=== PATIENT | female | born 1950 | race Two or more races ===

== ENCOUNTER 2017-08-13 11:06 | Emergency (ER) | payer OTHER ==
[~2017-08-13] VITALS: Ht 157.5 cm; Wt 59.0 kg
[~2017-08-13 11:06] MED LIST: ATARAX25 MG PO; OSEL75CA PO; ZYRTEC10 M3 PO
[2017-08-13] MEDS ORDERED: SYNTHROID75 MCG (11:38)
[2017-08-13] MEDS ORDERED: COZAAR50 MG (11:38)
[2017-08-13] MEDS ORDERED: ALPHAGAN P5 M2 (11:39)
[2017-08-13] MEDS ORDERED: CALTRATE 600+D1 EAC1 (11:39)
[2017-08-13] MEDS ORDERED: VITAMIN D31 ML (11:39)
[2017-08-13] MEDS ORDERED: ASPIR 8181 MG (11:39)
[2017-08-13] MEDS ORDERED: MUPIROCIN22 GM TOP (12:20)
[2017-08-13] MEDS ORDERED: DUI500 PO (12:20)
== END 2017-08-13 12:41 | disposition home or self-care (01) ==
LOC: ER 11:06
DX: S51.851A Open bite of right forearm, initial encounter (principal); W55.01XA Bitten by cat, initial encounter; Y93.89 Activity, other specified; Y92.89 Other specified places as the place of occurrence of the external cause; Y99.8 Other external cause status

== ENCOUNTER 2018-07-27 16:44 | Emergency (ER) | payer OTHER ==
[~2018-07-27] VITALS: Ht 160 cm; Wt 63.5 kg
[~2018-07-27 16:44] MED LIST changes: +ALPHAGAN P5 M2; +ASPIR 8181 MG; +CALTRATE 600+D1 EAC1; +COZAAR50 MG; +DUI500 PO; +MUPIROCIN22 GM TOP; +SYNTHROID75 MCG; +VITAMIN D31 ML
== END 2018-07-27 19:11 | disposition home or self-care (01) ==
LOC: ER 16:44
DX: B34.9 Viral infection, unspecified (principal); J11.1 Influenza due to unidentified influenza virus with other respiratory manifestations

== ENCOUNTER → 2020-08-03 | Outpatient (CLI) | payer OTHER | END | disposition home or self-care (01) | LOC: SONOGRAMA 09:12 | PROVIDERS: ATTEND Internal Medicine Cardiovascular Disease | DX: M12.811 Other specific arthropathies, not elsewhere classified, right shoulder (principal) ==

== ENCOUNTER 2021-07-06 09:38 | Emergency (ER) | payer OTHER ==
[~2021-07-06] VITALS: Ht 157.5 cm; Wt 64.9 kg
[2021-07-06] MEDS ORDERED: BETAMETHASONE D15 G2 TOP (13:45)
[2021-07-06] MEDS ORDERED: BENADRYL25 MG PO (13:45)
== END 2021-07-06 14:31 | disposition home or self-care (01) ==
LOC: ER 09:38
DX: L29.8 Other pruritus (principal); R21 Rash and other nonspecific skin eruption

== ENCOUNTER 2023-01-13 10:28 | Emergency (ER) | payer OTHER ==
[~2023-01-13] VITALS: Ht 162.6 cm; Wt 57.2 kg
[~2023-01-13 10:28] MED LIST changes: +BENADRYL25 MG PO; +BETAMETHASONE D15 G2 TOP
== END 2023-01-13 14:18 | disposition home or self-care (01) ==
LOC: ER 10:28
DX: S00.93XA Contusion of unspecified part of head, initial encounter (principal); S80.01XA Contusion of right knee, initial encounter; W18.30XA Fall on same level, unspecified, initial encounter; Y93.9 Activity, unspecified; Y92.012 Bathroom of single-family (private) house as the place of occurrence of the external cause; Y99.9 Unspecified external cause status

== ENCOUNTER 2024-03-31 09:01 | Outpatient (CLI) | payer OTHER | END 2024-03-31 09:02 | disposition home or self-care (01) | LOC: NUCLEAR 09:01 | PROVIDERS: ATTEND Internal Medicine Cardiovascular Disease | DX: I10 Essential (primary) hypertension (principal); G45.9 Transient cerebral ischemic attack, unspecified ==

== ENCOUNTER 2025-03-03 09:47 | Outpatient (CLI) | payer OTHER | END 2025-03-03 09:56 | disposition home or self-care (01) | LOC: SONOGRAMA 09:47 | PROVIDERS: ATTEND Internal Medicine Cardiovascular Disease | DX: M12.9 Arthropathy, unspecified (principal) ==

== ENCOUNTER 2025-04-19 13:09 | Outpatient (CLI) | payer OTHER | END 2025-04-19 13:10 | disposition home or self-care (01) | LOC: RAD 13:09 | PROVIDERS: ATTEND Psychiatry & Neurology Clinical Neurophysiology | DX: M25.751 Osteophyte, right hip (principal) ==